=== PATIENT | female | born 1980 | race Caucasian/White ===

== ENCOUNTER 2023-02-05 13:36 | Emergency (ER) | payer BC, SELFPAY ==
[2023-02-05] VITALS (16 sets, daily range): BP systolic 135–164; BP diastolic 62–87; PULSE 48–105; RESP 12–24; TEMP 37.2; O2SAT 98
--- NOTE | 2023-02-05 13:30 | RT.EKG_ITS ---
APPROVED REPORT Exam: Resting ECG Reason for Exam: Chest Pain Patient Location: E HR:87 bpm ECG Measurements Heart Rate 87 AXIS [place] 156 P -8 QRSd 108 QRS -25 QT 369 T 62 QTc 444 Conclusion Sinus rhythm... V-rate 60- [address] segment or T wave abnormalities to suggest occlusive [place]
--- NOTE | 2023-02-05 14:23 | ED.GENADUL_ITS ---
Discharge Plan Disposition Patient Disposition: Against Medical Advice Condition: Stable Discharge Details Clinical Impression: Heart palpitations, PVC (premature ventricular contraction) Primary Care Provider: Unknown,Unknown ED Provider: Gilda Sagastume Discharge Instructions Instructions: Heart Palpitations (ED), Premature Ventricular Contractions (ED) Additional Instructions: You are leaving against medical advice. Please return to the emergency department if you change your mind, we would be happy to see you again. Please also return to the emergency department if you develop new or worsening symptoms including chest pain, shortness of breath, feeling like you are going to pass out, or if you have any other concerns. I would like you to see cardiology; our cardiologists will call you to schedule an appointment, or you can followup with the die maker bench stamping of your choice. Your EKG was normal but your cardiac monitoring here in the ED showed PVCs and occasional bigeminy. Referrals: [facility] [Provider Group] Medical Decision Making Previously healthy female presenting for palpitations onset ~30 minutes prior to arrival while driving home from a [place]er[place]. Associated mild chest tightness, no chest pain or pleuritic pain or presyncope. No personal history of heart disease, no family history of early cardiac disease or sudden unexpected aside from provoked pulmonary embolism in mother in her 50's. Hypertensive with SBP 160's on arrival, mildly tachycardiac to 105. EKG NSR, appropriate intervals, no ST segment or T wave abnormalities to suggest occlusive [place]. Occasional PVCs noted on the monitor with at least one ~10 second run of bigeminy. Labs reviewed as below, CBC & CMP reassuring with no actionable abnormalities, nothing to suggest provoking factor. Dimer negative, would not further workup PE. Initial troponin negative, delta troponin ordered. Repeat vital signs reassuring, BP 150's/80's, HR 70's. Patient stating she wants to leave; I advised Ms. Barros that I would like her to stay for a chest xray and the repeat troponin; she verbalized understanding of my request and my concern that she may be have an acute cardiac event including a heart attack among other concerns. She again stated that she wanted to leave and follow up with her own doctor and that this is taking too long and you aren't taking care of me he re. She has capacity and I have no indication to hold her against her will. Cardiology referral was placed and discharge instructions written; she declined to wait for discharge instructions and ambulated out of the department with a steady gait. Left AMA. Lab Data Lab results reviewed: Yes I reviewed the patient's lab results. Labs: Laboratory Tests Range/Units 02/05/23 02/05/23 02/05/23 14:22 14:22 14:22 WBC (4.4-10.8) 10^3/uL 9.72 RBC (4.36-5.78) 10^6/uL 4.64 Hgb (13.5-17.5) g/dL 14.6 Hct (40.0-50.0) % 45.0 MCV (80-95) fL 97 H MCH (27.0-33.0) pg 31.5 MCHC (32.0-36.0) % 32.4 RDW (11.8-14.1) % 12.4 Plt Count (130-400) 10^3/uL 270 MPV (8.0-11.0) fL 10.0 Immature Gran % 0.3 Neutrophils % 76.1 Lymphocytes % 17.7 Monocytes % 5.2 Eosinophils % 0.3 Basophils % 0.4 Nucleated RBC % (0.0-0.3) % 0.0 Absolute Neutrophils (1.2-6.7) 10^3/uL 7.39 H Absolute Lymphocytes (1.2-3.4) 10^3/uL 1.72 Absolute Monocytes (0.1-0.8) 10^3/uL 0.51 Absolute Eosinophils (0.0-0.7) 10^3/uL 0.03 Absolute Basophils (0.0-0.2) 10^3/uL 0.04 D-Dimer (<500) ng/mlFEU Sodium (136-145) mmol/L 138 Potassium (3.5-5.1) mmol/L 3.5 Chloride (98-107) mmol/L 104 Carbon Dioxide (21.0-32.0) mmol/L 24.8 Anion Gap (3-11) mmol/L 9.2 BUN (7-18) mg/dL 9 Creatinine (0.70-1.30) mg/dL 0.9 Est GFR (CKD-EPI 2020) (mL/min/1.73m2) 108.68 Glucose (74-106) mg/dL 146 H Calcium (8.5-10.1) mg/dL 9.0 Total Bilirubin (0.2-1.0) mg/dL 0.2 AST (15-37) U/L 16 ALT (16-63) U/L 25 Alkaline Phosphatase (46-116) U/L 92 Troponin I (<or=60) ng/L < 50 Total Protein (6.4-8.2) g/dL 7.5 Albumin (3.4-5.0) g/dL 3.9 TSH (0.36-3.74) uIU/mL 1.86 Cancelled Range/Units 02/05/23 14:22 WBC (4.4-10.8) 10^3/uL RBC (4.36-5.78) 10^6/uL Hgb (13.5-17.5) g/dL Hct (40.0-50.0) % MCV (80-95) fL MCH (27.0-33.0) pg MCHC (32.0-36.0) % RDW (11.8-14.1) % Plt Count (130-400) 10^3/uL MPV (8.0-11.0) fL Immature Gran % Neutrophils % Lymphocytes % Monocytes % Eosinophils % Basophils % Nucleated RBC % (0.0-0.3) % Absolute Neutrophils (1.2-6.7) 10^3/uL Absolute Lymphocytes (1.2-3.4) 10^3/uL Absolute Monocytes (0.1-0.8) 10^3/uL Absolute Eosinophils (0.0-0.7) 10^3/uL Absolute Basophils (0.0-0.2) 10^3/uL D-Dimer (<500) ng/mlFEU 311 Sodium (136-145) mmol/L Potassium (3.5-5.1) mmol/L Chloride (98-107) mmol/L Carbon Dioxide (21.0-32.0) mmol/L Anion Gap (3-11) mmol/L BUN (7-18) mg/dL Creatinine (0.70-1.30) mg/dL Est GFR (CKD-EPI 2020) (mL/min/1.73m2) Glucose (74-106) mg/dL Calcium (8.5-10.1) mg/dL Total Bilirubin (0.2-1.0) mg/dL AST (15-37) U/L ALT (16-63) U/L Alkaline Phosphatase (46-116) U/L Troponin I (<or=60) ng/L Total Protein (6.4-8.2) g/dL Albumin (3.4-5.0) g/dL TSH (0.36-3.74) uIU/mL HPI General Mode of arrival: ambulatory . Date/Time Provider Initiated Documentation: 02/05/23 13:52 . Limitations to Documentation: no limitations . Information obtained by: patient . HPI Narrative: Previously healthy female presenting for palpitations. Symptoms started ~30 minutes prior to arrival while driving home from a . Feels like her heart is beating in my neck. Mild chest tightness associated with this. No pleuritic pain. No difficulty breathing, no presyncope, no syncope. Has exp erienced similar symptoms in the past but not for this long. No prior cardiac history. No recent illness. One cup of coffee today, not unsunal for her. No alcohol consumption. No family history of early cardiac disease or sudden unexpected aside from her mother who in her 50's from a pulmonary embolism after surgery. No family history of clotting disorders. She is otherwise in her usual state of health with no fevers, chills, rash, nausea, vomiting, diarrhea, abdominal pain, dysuruia, hematuria, numbness, tingling, weakness, or other concerns. Related Data Allergies Allergy/AdvReac Type Severity Reaction Status Date / Time No Known Allergies Allergy Unverified 02/05/23 13:49 General Stated Complaint: Anxiety DANITA: 3 Review of Systems Narrative: see HPI PFSH All Active Problems (Updated 02/05/23 @ 16:05 by Gilda Sagastume MD) Heart palpitations (Acute) PVC (premature ventricular contraction) (Acute) Social History Smoking risk assessment performed?: No Alcohol Intake: current Alcohol Intake frequency: holidays/special occasions only Substance use type: does not use Housing: apartment Do you feel safe at home: Yes Do you feel safe in your relationship?: Yes Exam Narrative Exam Narrative: General: Alert, well appearing, well nourished, anxious Head: Normocephalic, atraumatic Neck: Trachea midline, Neck supple. ENT: MMM. No oropharygeal lesions or exudate. Cardiac: RRR, no murmurs appreciated Resp: No respiratory distress. CTAB. Abd: Soft, non-distended, nontender : No suprapubic tenderness. Extremities: No deformities. No peripheral edema. Neurologic: GCS 15. Moves all extremities freely against gravity Course Vital Signs Vital signs: Vital Signs Temperature 37.2 C 02/05/23 13:41 Pulse 105 H 02/05/23 13:41 Respiratory Rate 18 02/05/23 13:41 Blood Pressure 162/87 H 02/05/23 13:41 Pulse Oximetry 98 02/05/23 13:41 Temperature 37.2 C 02/05/23 13:41 Pulse 105 H 02/05/23 13:41 Respiratory Rate 16 02/05/23 14:10 Respiratory Effort Normal 02/05/23 14:10 Respiratory Depth Normal 02/05/23 14:10 Respiratory Pattern Normal 02/05/23 14:10 Blood Pressure 162/87 H 02/05/23 13:41 Pulse Oximetry 98 02/05/23 13:41 Oxygen Delivery Method Room Air 02/05/23 13:41 Oxygen Flow Rate 0 02/05/23 13:41 Pain Level 0 02/05/23 13:41 PAWSS Have you Been Recently Intoxicated or Drunk Within the Last 30 days?: No Have you Ever Experienced Previous Episodes of Alcohol Withdrawal?: No Have you ever Experienced Withdrawal Seizures?: No Have you ever Experienced Delirium Tremens(DT)s?: No Have you ever undergone Alcohol Rehabilitation Treatment (i.e, inpt ot outpatient treatment programs)?: No Have you ever Experienced Blackouts?: No Have you ever Combined Alcohol with other Downers within the last 90 days?: No Have you ever Combined Alcohol with any other Substance of Abuse during the last 90 days?: No Positive Blood Alcohol level on Presentation? [PCS.BAL]: No Evidence of Increased Autonomic Activity (i.e. HR>120, tremor, sweating, agitation, nausea)?: No Result: 0
[2023-02-05 14:29] LABS: Abs Immature Grans 0.03 10^3/uL (0.0-0.06); Absolute Basophil Count 0.04 10^3/uL (0.0-0.2); Absolute Eosinophil Count 0.03 10^3/uL (0.0-0.7); Absolute Lymphocyte Count 1.72 10^3/uL (1.2-3.4); Absolute Monocyte Count 0.51 10^3/uL (0.1-0.8); Absolute Neutrophil Count 7.39 10^3/uL (1.2-6.7); Basophils % 0.4; Eosinophils % 0.3; HGB 14.6 g/dL (13.5-17.5); Immature Grans % 0.3; Lymphocytes % 17.7; MCH 31.5 pg (27.0-33.0); MCHC 32.4 % (32.0-36.0); MCV 97 fL (80-95); Monocytes % 5.2; Neutrophils % 76.1; Platelet Count 270 10^3/uL (130-400); RBC 4.64 10^6/uL (4.36-5.78); RDW 12.4 % (11.8-14.1); RDW-SD 44.6 fL; WBC 9.72 10^3/uL (4.4-10.8)
[2023-02-05 14:53] LABS: ALT 25 U/L (16-63); AST 16 U/L (15-37); Albumin 3.9 g/dL (3.4-5.0); Alkaline Phosphatase 92 U/L (46-116); Anion Gap 9.2 mmol/L (3-11); BUN 9 mg/dL (7-18); Bilirubin, Total 0.2 mg/dL (0.2-1.0); CO2 24.8 mmol/L (21.0-32.0); CREATININE 0.9 mg/dL (0.70-1.30); Chloride 104 mmol/L (98-107); Estimated GFR 108.68 (mL/min/1.73m2); Glucose 146 mg/dL (74-106); Potassium 3.5 mmol/L (3.5-5.1); Sodium 138 mmol/L (136-145); TSH (W/Ref FT4) 1.86 uIU/mL (0.36-3.74); Total Protein 7.5 g/dL (6.4-8.2); Troponin I < 50 ng/L (<or=60)
--- NOTE | 2023-02-05 16:06 | NUR.NOTE ---
Nursing Note: Pt left AMA.
--- NOTE | 2023-02-05 16:08 | NUR.NOTE ---
Pt was referred to Cardiology for Chest Pain. Nursing Note:
[2023-02-05 16:21] LABS: D-Dimer 311 ng/mlFEU (<500)
== END 2023-02-05 16:06 | disposition left against medical advice (07) ==
PROVIDERS: Emergency Provider Student in an Organized Health Care Education/Training Program
DX: R00.2 Palpitations (principal); I49.3 Ventricular premature depolarization
CPT/HCPCS: 80053; 93005; 99283; 84443; 84484; 85025; 85379; 93010; 99284